=== PATIENT | female | born 2000 | race African-American/Black ===

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

== ENCOUNTER 2022-12-04 19:25 | Emergency (ER) | payer MEDICAID ==
[~2022-12-04] VITALS: Ht 165.1 cm; Wt 83.0 kg
[~2022-12-04 19:25] MED LIST: CETI10TA11 MT
[2022-12-04] MEDS ORDERED: KETOROLAC 60MG/2ML VIAL IM ONE (21:15)
[2022-12-04] MEDS ORDERED: ACETAMINOPHEN 325MG TABLET PO ONE (21:15)
[2022-12-04] MEDS ORDERED: CYCL10TA21 MT (22:18)
[2022-12-04] MEDS ORDERED: IBUP-2030 MT (22:18)
[2022-12-04] MEDS ORDERED: CYCLOBENZAPRINE 10MG TABLET PO ONE (22:30)
[2022-12-04 22:46] VITALS: BP 116/85
== END 2022-12-04 22:54 | disposition home or self-care (01) ==
LOC: ER 19:25
DX: S16.1XXA Strain of muscle, fascia and tendon at neck level, initial encounter (principal); R51.9 Headache, unspecified; W50.0XXA Accidental hit or strike by another person, initial encounter; Y93.67 Activity, basketball; Y92.310 Basketball court as the place of occurrence of the external cause
CPT/HCPCS: 72125; 81025; 96372; 99284; J1885

== ENCOUNTER 2023-01-16 19:23 | Emergency (ER) | payer MEDICAID ==
[~2023-01-16] VITALS: Ht 165.1 cm; Wt 78.8 kg
[~2023-01-16 19:23] MED LIST changes: +CYCL10TA21 MT; +IBUP-2030 MT
[2023-01-16 23:19] VITALS: BP 131/71
== END 2023-01-17 03:48 | disposition left against medical advice (07) ==
LOC: ER 19:23
DX: R68.89 Other general symptoms and signs (principal); Z53.21 Procedure and treatment not carried out due to patient leaving prior to being seen by health care provider
CPT/HCPCS: 81025; 99281

== ENCOUNTER 2023-01-31 18:34 | Emergency (ER) | payer MEDICAID ==
[~2023-01-31] VITALS: Ht 165.1 cm; Wt 61.0 kg
[2023-01-31 18:36] VITALS: BP 122/74
[2023-01-31] MEDS ORDERED: ACETAMINOPHEN 325MG TABLET PO PRN (23:00)
[2023-01-31 23:18] LABS: BASOPHILS % 0.9 % (0.0-2.0); EOSINOPHILS % 3.8 % (0.0-5.0); HEMATOCRIT. 35.3 % (36.0-48.0); HEMOGLOBIN. 11.3 g/dL (12.0-16.0); LYMPHOCYTES % 42.6 % (20.0-50.0); MEAN CORPUSCULAR HEMOGLOBIN 23.6 pg (28.0-32.0); MEAN CORPUSCULAR VOLUME 73.3 fL (81.0-99.0); MEAN PLATELET VOLUME 8.1 fl (7.4-10.4); NEUTROPHILS % 44.7 % (40.0-76.0); PLATELET 327 x1000/uL (130-400); RED BLOOD CELL COUNT 4.81 mill/uL (4.2-5.4); RED CELL DISTRIBUTION WIDTH 13.7 % (11.6-14.6)
[2023-01-31 23:23] LABS: CHLORIDE 106 mEq/L (98-107)
[2023-01-31 23:24] LABS: CLARITY URINE CLOUDY (CLEAR); COLOR URINE DARK YELLOW (YELLOW); KETONES URINE TRACE (NEGATIVE); LEUKOCYTE ESTERASE URINE TRACE (NEGATIVE); NITRITE URINE NEGATIVE (NEGATIVE); OCCULT BLOOD URINE 3+ (NEGATIVE); PH URINE 5.5 (4.5-8.0); PROTEIN URINE 1+ (NEGATIVE); SPECIFIC GRAVITY URINE 1.038 (1.005-1.030)
[2023-01-31 23:33] LABS: B-HCG QUANTITATIVE 93 mIU/mL (<3)
[2023-02-01] MEDS ORDERED: ACET-2708 MT (00:33)
== END 2023-02-01 01:39 | disposition home or self-care (01) ==
LOC: ER 18:42
DX: O03.4 Incomplete spontaneous abortion without complication (principal); O46.91 Antepartum hemorrhage, unspecified, first trimester; Z3A.01 Less than 8 weeks gestation of pregnancy
CPT/HCPCS: 36415; 76830; 76856; 80053; 81003; 81025; 84702; 85025; 86850; 86900; 99284

== ENCOUNTER 2023-02-02 11:48 | Emergency (ER) | payer MEDICAID ==
[~2023-02-02] VITALS: Ht 165.1 cm; Wt 77.7 kg
[~2023-02-02 11:48] MED LIST changes: +ACET-2708 MT
[2023-02-02 11:51] VITALS: BP 152/71
== END 2023-02-02 13:17 | disposition left against medical advice (07) ==
LOC: ER 12:15
DX: Z53.21 Procedure and treatment not carried out due to patient leaving prior to being seen by health care provider (principal)
CPT/HCPCS: 99281

== ENCOUNTER 2024-04-04 13:09 | Emergency (ER) | payer MEDICARE, MEDICAID ==
[~2024-04-04] VITALS: Ht 165.1 cm; Wt 54.0 kg
[2024-04-04 13:16] VITALS: BP 127/82; PULSE 67; RESP 16; TEMP 98.4; O2SAT 100
[2024-04-04 14:18] LABS: BASOPHILS % 1.3 % (0.0-2.0); CHLORIDE 106 mEq/L (98-107); DIFFERENTIAL COMMENT 0; EOSINOPHILS % 9.3 % (0.0-5.0); HEMATOCRIT. 36.8 % (36.0-48.0); HEMOGLOBIN. 12.1 g/dL (12.0-16.0); LYMPHOCYTES % 37.6 % (20.0-50.0); MEAN CORPUSCULAR HEMOGLOBIN 24.4 pg (28.0-32.0); MEAN CORPUSCULAR HGB CONC 32.8 g/dL (31.0-37.0); MEAN CORPUSCULAR VOLUME 74.4 fL (81.0-99.0); MEAN PLATELET VOLUME 8.2 fl (7.4-10.4); MONOCYTES % 9.6 % (2.0-8.0); NEUTROPHILS % 42.2 % (40.0-76.0); PLATELET 277 x1000/uL (130-400); POTASSIUM 4.1 mEq/L (3.5-5.1); RED BLOOD CELL COUNT 4.95 mill/uL (4.2-5.4); RED CELL DISTRIBUTION WIDTH 13.8 % (11.6-14.6); SODIUM 138 mEq/L (136-145); WHITE BLOOD COUNT 4.4 x1000/uL (4.5-11.0)
[2024-04-04 14:19] LABS: CALCIUM 9.6 mg/dL (8.7-10.4); CARBON DIOXIDE 29 mEq/L (21-32)
[2024-04-04 14:24] LABS: CREATININE 0.8 mg/dL (0.6-1.0); GLUCOSE 77 mg/dL (70-105); UREA NITROGEN BLOOD 7 mg/dL (9-23)
[2024-04-04 14:27] LABS: HCG SCREEN NEGATIVE
[2024-04-04 14:34] LABS: TROPONIN I HIGH SENSITIVITY < 4 ng/L (3.0-34)
[2024-04-04 14:35] LABS: ALANINE AMINOTRANSFERASE 14 IU/L (10-49); ALBUMIN 4.4 g/dL (3.2-4.8); ASPARTATE AMINOTRANSFERASE 20 IU/L (<34); BILIRUBIN DIRECT 0.3 mg/dL (<=3.0); BILIRUBIN TOTAL 0.7 mg/dL (0.1-1.0); PROTEIN TOTAL 6.9 g/dL (6.0-8.3)
== END 2024-04-04 16:11 | disposition home or self-care (01) ==
LOC: ER 13:09
DX: R55 Syncope and collapse (principal); R07.9 Chest pain, unspecified; R00.2 Palpitations; Z91.013 Allergy to seafood; Z88.8 Allergy status to other drugs, medicaments and biological substances
CPT/HCPCS: 36415; 71045; 80048; 80076; 82962; 84484; 84703; 85025; 85379; 93005; 99285